=== PATIENT | female | born 1935 | race Caucasian/White ===

== ENCOUNTER 2024-04-06 07:45 | Inpatient (IN) | payer OTHER, SELFPAY ==
[2024-03-15 13:42] VITALS: BMI 28.1
[2024-03-15 14:39] LABS: Hematocrit 39.5 % (37.0-47.0); Hemoglobin 13.1 g/dL (12.0-16.0); Mean Corp Hgb Conc. 33.2 g/dL (33.0-37.0); Mean Corpuscular Hgb 32.6 pg (27.0-31.0); Mean Corpuscular Volume 98.3 fL (81.0-99.0); Mean Platelet Volume 9.3 fL (7.4-10.4); Platelet Count 227 10^3/uL (130-400); Red Blood Cell Count 4.02 10^6/uL (4.20-5.40); Red Cell Dist. Width 13.1 % (11.5-14.5); White Blood Cell Count 7.6 10^3/uL (4.8-10.8)
[2024-03-15 15:09] LABS: ALT (SGPT) 16 U/L (0-35); AST (SGOT) 31 U/L (14-36); Albumin 4.4 g/dl (3.5-5.0); Alkaline Phosphatase 82 U/L (38-126); Blood Urea Nitrogen 17 mg/dl (7-17); Calcium 9.9 mg/dl (8.4-10.2); Carbon Dioxide 31 mmol/L (22-30); Chloride 100 mmol/L (98-107); Estimated Creatinine Clearance 42 ml/min; Glucose 94 mg/dl (70-99); Potassium 4.9 mmol/L (3.5-5.1); Sodium 138 mmol/L (135-145); Total Bilirubin 1.4 mg/dl (0.2-1.3); Total Protein 6.6 g/dl (6.3-8.2); eGFR > 60.00
[2024-03-31 11:44] VITALS: BMI 28.1
[2024-04-06] VITALS (22 sets, daily range): BP systolic 94–146; BP diastolic 48–90; PULSE 81; O2SAT 89
[2024-04-06] MEDS: NORMOSOL-R/PLASMALYTE-A 1000 IV ×2 (08:05→12:16)
[2024-04-06] MEDS: CELEBREX 200 MG PO (08:14)
[2024-04-06] MEDS: TYLENOL 650 MG PO ×3 (08:14→21:44)
--- NOTE | 2024-04-06 10:06 | W.PN.ORTHO ---
Today's Communication / Plan
-
D/c when clinically stable.
Assessment
.
Dressing:
Dressing oozing post-procedure -> dressing changed and ANNE pressure wrap applied.
Assessment:
The patient has felix
R knee OA s/p R TKA w/ Dr Kenney 04/06/24
DVT prophylaxis - resumption of Eliquis, b/l venous foot pumps
Post-op nausea - continue Zofran/Compazine prn
- Add daily Protonix
- Monitor
PVCs - monitor on tele
Unprovoked RLE DVT, 2019, and unprovoked b/l PE 2011, treated w/ Coumadin - resume Eliquis
- Previous hypercoaguable w/u neg
- Frequent and early ambulation as tolerated
- Plasma flow devices HIGHLY encouraged upon d/c
COPD w/ asthmatic component
Chronic PADILLA � multifactorial (weight gain, deconditioning)
- Monitor O2
- Resume inhaler
- IS
CKD stage 3 - minimize nephrotoxins
GERD - add Pepcid HS
Microscopic colitis - no NSAIDs
- Continue Budesonide -> would benefit from Cefadroxil upon d/c d/t chronic steroid use
Hypercholesterolemia
Venous insufficiency
R RC syndrome
Osteopenia
Insomnia
C diff 2018
Plan
.
Surgery / Date: R TKA w/ Dr Kenney 04/06/24
DVT Prophylaxis: Other (Eliquis )
Activity:
Out of bed.
PT/OT
Discharge Plan: Home w/ Outpatient PT
Subjective
.
.:
Patient resting comfortably in bed.
R knee pain currently well tolerated.
Post-op nausea likely 2* anesthesia - medicated w/ Zofran, Compazine.
Vital Signs and Labs
.
Vital Signs and Labs:
Lab Results
03/15/24 13:39
03/15/24 13:38
Temp Pulse Resp BP Pulse Ox
97 F 83 16 115/76 94
04/06/24 07:30 04/06/24 07:30 04/06/24 07:30 04/06/24 07:30 04/06/24 07:30
Physical Exam
-
HEENT: No pallor, cyanosis, or jaundice. Throat clear.
NECK: Supple. No JVD.
RESPIRATORY: Lungs clear to auscultation.
CVS: S1, S2 normal. RRR.�
ABDOMEN: Soft, non-tender. No distension.
EXTREMITIES: Strength equal, no calf pain with palpation/dorsiflexion. Calves soft.
SURVEY SUPERINTENDENT: AOx3. No focal deficits. electrical designer grossly intact
[2024-04-06] MEDS: ZOFRAN 4 MG IV (11:12)
[2024-04-06] MEDS: COMPAZINE 5 MG IV (11:31)
--- NOTE | 2024-04-06 12:12 | SUR.PHASEI ---
Parker lunch relief Lightly dozing, denies c/o awaiting room
--- NOTE | 2024-04-06 12:34 | SUR.PHASEI ---
Dozing vss, sl nausea persists, jennifer darren, Catalina GARCIA in and examined, Dr Kenney in
[2024-04-06] MEDS: TYLENOL PO (13:30)
[2024-04-06] MEDS: NSS (PRESERVATIVE FREE) 10 ML IV (14:44)
[2024-04-06] MEDS: PROTONIX IV 40 MG IV (14:44)
--- NOTE | 2024-04-06 14:54 | PTCARENOTE ---
1345: Patient arrived to 2S. Full head to toe assessment completed. B/L LE neurovascular assessment completed. R knee with sara bandage clean dry and intact. IVF running per order. Patient on RA with SpO2 greater than 92%. Call velasquez within reach and
bed in lowest position. Patients daughter at bedside.
[2024-04-06] MEDS: ANCEF 5 IV (17:00)
[2024-04-06] MEDS: COLACE 100 MG PO (19:49)
[2024-04-06] MEDS: BACTROBAN 2% OINTMENT 1 APPLIC NASAL (19:49)
[2024-04-06] MEDS: ELIQUIS 2.5 MG PO (19:49)
[2024-04-06] MEDS: SENOKOT 17.2 MG PO (19:49)
[2024-04-06] MEDS: PRAVACHOL 40 MG PO (21:48)
[2024-04-06] MEDS: DESYREL 75 MG PO (21:48)
[2024-04-07] MEDS: ROXICODONE 5 MG PO ×2 (01:20→08:16)
[2024-04-07] MEDS: TYLENOL 650 MG PO ×3 (01:20→11:23)
[2024-04-07] MEDS: ANCEF 5 IV (01:21)
[2024-04-07] MEDS: FLUSH (NSS) 2 FLUSH IV (01:21)
[2024-04-07 03:02] VITALS: BP 102/54
[2024-04-07] MEDS: TYLENOL PO (05:03)
--- NOTE | 2024-04-07 05:06 | PTCARENOTE ---
Right knee dressing remained C/D/I throughout shift. Patient needed a lot of nursing encouragement for activity. She did ambulate to bathroom x 1. Teds and foot pumps in place throughout shift.
[2024-04-07 07:25] VITALS: BP 104/56
[2024-04-07] MEDS: SENOKOT 17.2 MG PO (08:12)
[2024-04-07] MEDS: PROTONIX 40 MG PO (08:12)
[2024-04-07] MEDS: ELIQUIS 2.5 MG PO (08:12)
[2024-04-07] MEDS: BACTROBAN 2% OINTMENT 1 APPLIC NASAL (08:13)
[2024-04-07] MEDS: COLACE 100 MG PO (08:14)
[2024-04-07 09:50] VITALS: PULSE 82; O2SAT 95
[2024-04-07 11:10] VITALS: BP 121/69
--- NOTE | 2024-04-07 11:18 | CM ---
met with keshawn and daughter at bedside.patient lives at [facility] in [place],she was amb i and was I with her adl prior to surgery.she has never had a vn or been to ip rehab in past.
PCP: Dr Melo Pharmacy: [facility]
PMH: sbo,diarrhea,pancolitis,gerd,oa,pe,transient cerebral ischemia
Patient adm with OA and is pod#1 R TKA, she is ambulating in room a little,tolerating diet,pain is controlled,resume eliquis.spoke with therapist who rec home pt and vn.spoke with edwin at [facility] and placed a referral to [facility] via
[employer].daughter to transport home.patient signed imm letter.Plan :dc home with vn and home pt through [facility].
--- NOTE | 2024-04-07 11:32 | W.PN.ORTHO ---
Today's Communication / Plan
-
D/c today since clinically stable.
Assessment
.
Distal Motor Intact: Yes
Dressing:
Clean, dry and intact.
Assessment:
The patient has felix
R knee OA s/p R TKA w/ Dr Kenney 04/06/24
DVT prophylaxis - resumption of Eliquis, b/l venous foot pumps
Post-op nausea - improved w/ daily Protonix, Zofran and Compazine prn
- Does have Rx for Zofran prn
PVCs - maintaining NSR w/ 1st deg AV block on tele
Unprovoked RLE DVT, 2018, and unprovoked b/l PE 2011, treated w/ Coumadin - resumed Eliquis
- Previous hypercoaguable w/u neg
- Frequent and early ambulation as tolerated
- Plasma flow devices HIGHLY encouraged upon d/c -> call placed to medical staffing coordinator at [facility] to facilitate this
COPD w/ asthmatic component
Chronic PADILLA � multifactorial (weight gain, deconditioning)
- O2 stable on RA
- Resumed inhaler
- IS
CKD stage 3 - continue to minimize nephrotoxins
GERD - added Protonix
Microscopic colitis - no NSAIDs
- Continue Budesonide -> would benefit from Cefadroxil upon d/c d/t chronic steroid use
Hypercholesterolemia
Venous insufficiency
R RC syndrome
Osteopenia
Insomnia
C diff 2019
Plan
.
Surgery / Date: R TKA w/ Dr Kenney 04/06/24
DVT Prophylaxis: Other (Eliquis )
Activity:
Out of bed.
PT/OT
Discharge Plan: Home w/ VN
Subjective
.
.:
Patient resting comfortably in her chair.
R knee pain overall well controlled w/ current pain med regimen.
Denies any new significant complaints.
Eager for potential d/c today.
Vital Signs and Labs
.
Vital Signs and Labs:
Lab Results
03/15/24 13:39
03/15/24 13:38
Temp Pulse Resp BP Pulse Ox
97.6 F 85 18 104/56 92
04/07/24 07:25 04/07/24 07:25 04/07/24 07:25 04/07/24 08:12 04/07/24 08:09
Non-invasive Hgb result: 11.6
Physical Exam
-
HEENT: No pallor, cyanosis, or jaundice. Throat clear.
NECK: Supple. No JVD.
RESPIRATORY: Lungs clear to auscultation.
CVS: S1, S2 normal. RRR.�
ABDOMEN: Soft, non-tender. No distension.
EXTREMITIES: Expected post-surgical R knee edema. Strength equal. No calf pain with palpation/dorsiflexion. Calves soft.
STOVE MOUNTER: AOx3. No focal deficits. midwife practitioner grossly intact
--- NOTE | 2024-04-07 11:49 | W.DS.TRANS ---
DC Summary - Agriscience Teacher
-
Discharge Instructions:
Sleep Apnea Risk Low
Discharge Diagnosis/Procedures R knee OA s/p R TKA w/ Dr Kenney 04/06/24
Diet Other diet
Additional Diets Diabetic carb controlled x1 week for wound
healing/infection prevention.
Activity As tolerated,With Walker
Driving Restrictions Not until seen by your Dr
Bathing Restrictions OK to Shower
Other Services PT,VN
Wound Care Dressing to be removed 1 week post-surgery.
Sarah Beth to be removed by surgeon's office in 2
weeks.
Instructions:
Stand-Alone Forms: Total Hip/Knee Replacement D/C
Changes to Home Medications: Yes
Discharge Medications:
DC Medications w/original date entered in [employer]
albuterol sulfate 90 mcg/actuation aerosol inhaler 1 puff inhalation R QIDPRN PRN sob 04/29/19
multivitamin with folic acid 400 mcg tablet (Tab-A-Gasper) 1 tab PO DAILY Supplement 04/29/19
trazodone 50 mg tablet 75 mg PO HS Sleep 04/29/19
calcium 600 mg (as carbonate)-vitamin D3 10 mcg (400 unit) tablet (Calcium 600 + D(3)) 1 ea PO DAILY Supplement 05/12/19
cranberry 500 mg capsule 500 mg PO DAILY Supplement 05/12/19
apixaban 2.5 mg tablet (Eliquis) 2.5 mg PO BID Blood Clot Prevention/Tx 01/08/23
budesonide 3 mg capsule,delayed,extended release 1 mg PO DAILY Gastrointestinal Issue 01/08/23
melatonin 5 mg tablet 5 mg PO HSPRN PRN sleep 01/08/23
pravastatin 40 mg tablet 40 mg PO HS High Cholesterol 01/08/23
mupirocin 2 % topical ointment 1 applic topical BID 03/31/24
Saccharomyces boulardii 250 mg capsule (Florastor) 250 mg PO DAILY #7 caps 04/07/24
acetaminophen 500 mg tablet (Tylenol Extra Strength) 1,000 mg (2 x 500 mg) PO Q6H #60 tabs 04/07/24
cefadroxil 500 mg capsule 500 mg PO DAILY #7 caps 04/07/24
docusate sodium 100 mg capsule 100 mg PO BID #30 caps 04/07/24
ondansetron HCl 4 mg tablet 4 mg PO Q6H PRN nausea and vomiting #30 tabs 04/07/24
oxycodone 5 mg tablet 5 - 10 mg (1 - 2 x 5 mg) PO Q6H PRN moderate-severe pain #30 tabs 04/07/24
sennosides 8.6 mg tablet (Senna Laxative) 17.2 mg (2 x 8.6 mg) PO BID #30 tabs 04/07/24
triamterene 37.5 mg-hydrochlorothiazide 25 mg tablet 1 tab PO DAILY #0 tabs 04/07/24
Home Medication Changes
Saccharomyces boulardii 250 mg capsule (Florastor) 250 mg PO DAILY #7 caps 04/07/24
acetaminophen 500 mg tablet (Tylenol Extra Strength) 1,000 mg (2 x 500 mg) PO Q6H #60 tabs 04/07/24
cefadroxil 500 mg capsule 500 mg PO DAILY #7 caps 04/07/24
docusate sodium 100 mg capsule 100 mg PO BID #30 caps 04/07/24
ondansetron HCl 4 mg tablet 4 mg PO Q6H PRN nausea and vomiting #30 tabs 04/07/24
oxycodone 5 mg tablet 5 - 10 mg (1 - 2 x 5 mg) PO Q6H PRN moderate-severe pain #30 tabs 04/07/24
sennosides 8.6 mg tablet (Senna Laxative) 17.2 mg (2 x 8.6 mg) PO BID #30 tabs 04/07/24
Pending Results: No
[2024-04-07 12:29] VITALS: BP 113/66; PULSE 82; O2SAT 94
== END 2024-04-07 12:47 | disposition home or self-care (01) | DRG 470 ==
LOC: 2 SOUTH 07:45
PROVIDERS: ADMITTING PHYSICIAN Orthopaedic Surgery; FAMILY PHYSICIAN Internal Medicine Geriatric Medicine
PROC: 0SRC0J9 Replacement of Right Knee Joint with Synthetic Substitute, Cemented, Open Approach (ICD-10-PCS; 2024-04-06)
DX: M17.11 Unilateral primary osteoarthritis, right knee (principal); J44.9 Chronic obstructive pulmonary disease, unspecified; N18.30 Chronic kidney disease, stage 3 unspecified; I87.2 Venous insufficiency (chronic) (peripheral); E78.00 Pure hypercholesterolemia, unspecified
CPT/HCPCS: 36415; 73560; 80053; 83036; 85027; 87070; 93005; 97110; 97116; 97163; 97167; 97530; 97535; C1713; C1776

== ENCOUNTER 2024-04-20 15:48 | Emergency (ER) | payer OTHER, SELFPAY ==
[2024-04-20 15:50] VITALS: BP 90/56
[2024-04-20 16:24] LABS: % Basophils 0.5 % (0-2); % Eosinophils 1.1 % (0-6); % Immature Granulocytes 0.6 % (0-0.5); % Lymphocytes 17.3 % (20.5-51.1); % Monocytes 7.3 % (1.7-9.3); % Neutrophils 73.2 % (42.2-75.2); Absolute Basophils 0.1 10^3/uL (0-0.2); Absolute Eosinophils 0.1 10^3/uL (0-0.7); Absolute Immature Granulocytes 0.1 10^3/uL (0-0.05); Absolute Lymphocytes 1.7 10^3/uL (1.2-3.4); Absolute Monocytes 0.7 10^3/uL (0.1-0.6); Hematocrit 26.4 % (37.0-47.0); Hemoglobin 8.7 g/dL (12.0-16.0); Mean Corpuscular Hgb 31.5 pg (27.0-31.0); Mean Corpuscular Volume 95.7 fL (81.0-99.0); Mean Platelet Volume 8.3 fL (7.4-10.4); Nucleated Red Blood Cells % 0 %; Platelet Count 342 10^3/uL (130-400); Red Blood Cell Count 2.76 10^6/uL (4.20-5.40); Red Cell Dist. Width 13.3 % (11.5-14.5); White Blood Cell Count 9.6 10^3/uL (4.8-10.8)
[2024-04-20 16:29] LABS: INR 1.33; PT 16.6 Sec (11.4-14.6)
[2024-04-20 16:37] LABS: ALT (SGPT) 32 U/L (0-35); AST (SGOT) 35 U/L (14-36); Albumin 3.5 g/dl (3.5-5.0); Alkaline Phosphatase 101 U/L (38-126); Blood Urea Nitrogen 15 mg/dl (7-17); Calcium 9.3 mg/dl (8.4-10.2); Carbon Dioxide 27 mmol/L (22-30); Chloride 98 mmol/L (98-107); Glucose 112 mg/dl (70-99); Potassium 4.2 mmol/L (3.5-5.1); Sodium 135 mmol/L (135-145); Total Bilirubin 1.9 mg/dl (0.2-1.3); Total Protein 5.6 g/dl (6.3-8.2); eGFR > 60.00
[2024-04-20 16:45] LABS: Troponin I < 0.012 ng/ml
[2024-04-20 18:39] VITALS: BP 112/61
--- NOTE | 2024-04-20 21:09 | ED.GENMED ---
History of Present Illness
General
Chief Complaint: Abnormal Lab Value
Time Seen by Provider: 04/20/24 19:32
History of Present Illness
History of Present Illness:
88-year-old female with history of COPD, prior PE on Eliquis, hypertension, and hyperlipidemia presents to the emergency department for evaluation of an elevated D-dimer. This test was obtained by her primary physician through [facility].
States she had labs drawn this morning, states she has no symptoms 'I was taking a nap when the medics woke me up'. Currently denies chest pain or shortness of breath. She reportedly has had some difficulty with exertional dyspnea while performing
rehab and was even given exertional oxygen which is likely the cause of the D-dimer lab that was obtained. She has been on Eliquis since 1 day postop. Is currently on antibiotics for presumed cellulitis of the right lower extremity. She does note
having a cough and wheezing approximately 1 week ago, however this has resolved
Past History
Past History
ED Past Medical History: COPD, GERD, HTN, Hypercholesterolemia, Psychiatric (A/D), Other (chronic collagenous colitis) and Other (DVT, CKD)
ED Past Surgical History: Cholecystectomy and Gynecological (Hysterectomy)
Social History
Tobacco: Non-smoker
Alcohol: None
Drug: None
Personal:
Living: alone
Employment: Not employed
Family History
Family History: Other (Reviewed and non-contributory)
Review of Systems
Review of Systems
Allergies reviewed?: Yes
All Other Systems: ROS reviewed and negative except as documented in HPI and ROS
Phy Exam
Physical Exam
Physical Exam:
GEN: Well appearing, NAD, WDWN
Eyes: PERRLA, EOMs intact, no scleral icterus
HENT: NCAT, oral mucosa moist, no JVD, no cervical adenopathy.
Lungs: CTAB, no wheezes, rales, rhonchi, normal chest wall excursion
Cardiac: RRR, no M/R/G, no peripheral edema. Radial pulses 2+ bilat
Neuro: AO x 3
MSK: Status post right TKA. Incision is clean dry and intact with no dehiscence or discharge. No erythema. Diffuse joint effusion and edema extending to the lower extremity
Skin: No rashes, petechiae. Normal color, no pallor or jaundice.
Psych: Calm, cooperative, proper hygiene
Course
Orders/Labs/Results
Orders:
Orders
04/20/24 15:55
Electrocardiogram (*1) Urgent
Reason for Study: Chest Pain
EKG- Treatment ONCE
04/20/24 16:05
Complete Blood Count/With Diff Urgent
Comprehensive Metabolic Panel Urgent
Prothrombin Time Urgent
Troponin I Urgent
04/20/24 19:41
CR Chest - 2 Views Urgent
Comment:
Reason For Exam: cough
Venous Doppler Lwr Ext Rt [US Periph Venous LOWER Ext RT] Urgent
Comment:
Reason For Exam: RLE edema, TKA 2 weeks ago, pos dimer
Abnormal Lab Results
04/20/24
16:05
RBC 2.76 L 10^6/uL
(4.20-5.40)
Hgb 8.7 L g/dL
(12.0-16.0)
Hct 26.4 L %
(37.0-47.0)
MCH 31.5 H pg
(27.0-31.0)
Abs Immat Gran (auto) 0.1 H 10^3/uL
(0-0.05)
Absolute Neuts (auto) 7.0 H 10^3/uL
(1.4-6.5)
Absolute Monos (auto) 0.7 H 10^3/uL
(0.1-0.6)
Immature Gran % 0.6 H %
(0-0.5)
Lymphocytes % 17.3 L %
(20.5-51.1)
PT 16.6 H Sec
(11.4-14.6)
Glucose 112 H mg/dl
(70-99)
Total Bilirubin 1.9 H mg/dl
(0.2-1.3)
Total Protein 5.6 L g/dl
(6.3-8.2)
04/20/24 16:05
04/20/24 16:05
Vital Signs
Initial and Last Documented VS:
Initial Vital Signs
Temp Pulse Resp BP Pulse Ox
98.5 F 89 16 90/56 97
04/20/24 15:50 04/20/24 15:50 04/20/24 15:50 04/20/24 15:50 04/20/24 15:50
Last Documented Vital Signs
Temp Pulse Resp BP Pulse Ox
99.2 F 74 18 112/64 99
04/20/24 18:39 04/20/24 21:16 04/20/24 21:16 04/20/24 21:16 04/20/24 21:16
MDM/Problems Addressed
MDM/Problems Addressed:
Patient's elevated D-dimer is most likely on the basis of recent major surgery. Ultrasound of the right lower extremity shows no evidence for DVT, given that she has been anticoagulated since immediately postop and has no chest pain or shortness of
breath at rest I have a low suspicion for pulmonary embolism. I suspect her exertional dyspnea is on the basis of her postoperative anemia, this will need to be trended over the next 1 to 2 weeks by her nursing facility to assure that it improves,
at this time does not meet criteria for blood transfusion. Do not see indication for CT angiogram of the chest at this time as I do not suspect PE, I suspect the elevated D-dimer was artifactual. CXR suggestive of possible lower lobe PNA vs
atelectasis, she has no cough, fever or leukocytosis thus do not see rationale for antibiotics at this time.
Comment
Comment:
EKG independently interpreted by me shows normal sinus rhythm with no ischemic changes at a rate of 89, patient motion artifact limits interpretation particularly inferior and lateral leads.
*Critical Care Note
Total Time (30-74mins, 75-104mins- exclusive of procedures): Not Applicable
ED Attending Note
-
Portions of this chart may have been created with voice recognition software.� Occasional wrong word or��sound alike� substitutions may have occurred due to the inherent limitations of voice recognition software.
Discharge Plan
Departure
Patient Disposition: Home (Routine Discharge)
Date of Disposition: 04/20/24
Time of Disposition: 21:12
Patient with high blood pressure during this ER visit?: No
Discharge Problem:
Postoperative anemia, D-dimer, elevated, Status post total knee replacement, right
Prescriptions:
No Action
trazodone 50 MG tablet
75 mg PO HS
albuterol sulfate 1 PUFF HFA aerosol inhaler
1 puff inhalation R QIDPRN PRN (Reason: sob)
multivitamin with folic acid [Tab-A-Gasper] 1 TABLET tablet
1 tab PO DAILY
cranberry 500 MG capsule
500 mg PO DAILY
calcium carbonate-vitamin D3 [Calcium 600 + D(3)] 1 EACH tablet
1 ea PO DAILY
pravastatin 40 mg Tablet
40 mg PO HS
melatonin 5 mg Tablet
5 mg PO HSPRN PRN (Reason: sleep)
Eliquis 2.5 mg Tablet
2.5 mg PO BID
budesonide 3 MG capsule,delayed,extend.release
1 mg PO DAILY
mupirocin 2 % Ointment
1 applic TOPICAL BID
Patient Comments:
Patient started this medication administration on 04/03/24 in the morning.
docusate sodium 100 mg Capsule
100 mg PO BID Qty: 30 0RF
oxycodone 5 mg Tablet
5 - 10 mg PO Q6H PRN (Reason: moderate-severe pain) Qty: 30 0RF
Rx Instructions:
1 tab for moderate pain, 2 if severe.
Dx total joint.
sennosides [Senna Laxative] 8.6 mg Tablet
17.2 mg PO BID Qty: 30 0RF
ondansetron HCl 4 mg tablet
4 mg PO Q6H PRN (Reason: nausea and vomiting) Qty: 30 0RF
Rx Instructions:
Prescribed pre-op by surgeon's office.
Saccharomyces boulardii [Florastor] 250 mg capsule
250 mg PO DAILY Qty: 7 0RF
Rx Instructions:
Over the counter. Take while on antibiotic.
If unavailable, choose a different probiotic.
acetaminophen [Tylenol Extra Strength] 500 mg Tablet
1,000 mg PO Q6H Qty: 60 0RF
Rx Instructions:
DO NOT exceed >4000 mg daily.
triamterene-hydrochlorothiazid 37.5-25 mg Tablet
1 tab PO DAILY Qty: 0 0RF
Rx Instructions:
HOLD IF systolic blood pressure <130 while on Oxycodone.
cefadroxil 500 mg capsule
500 mg PO DAILY Qty: 7 0RF
Referrals:
Taniya Melo MD [Family Provider] -
Activity Restrictions/Additional Instructions:
The d dimer elevation is likely artifactual due to recent major surgery
Her hemoglobin dropped approximately 5gm since pre-operative; please have a repeat CBC checked in 1 week to assure it is improving. This is the likely cause of her exertional difficulty breathing
Interventions
Interventions:
*Risk Screen - Suicide Last Done: 04/20/24 15:50
*General Assessment Last Done: 04/20/24 19:36
*Neglect/Abuse Screening Last Done: 04/20/24 15:50
ED- Fall Risk Assessment Last Done: 04/20/24 19:36
Discharge Date and Time
Print Language: DIVEHI
[2024-04-20 21:16] VITALS: BP 112/64
[2024-04-20 23:55] VITALS: BP 126/61
== END 2024-04-20 23:55 ==
LOC: EMR 15:48
PROVIDERS: Emergency Medicine; EMERGENCY PHYSICIAN Emergency Medicine; FAMILY PHYSICIAN Internal Medicine Geriatric Medicine
DX: D64.89 Other specified anemias (principal); R79.1 Abnormal coagulation profile; Z96.651 Presence of right artificial knee joint; J44.9 Chronic obstructive pulmonary disease, unspecified; I10 Essential (primary) hypertension; K21.9 Gastro-esophageal reflux disease without esophagitis; Z79.01 Long term (current) use of anticoagulants; Z86.718 Personal history of other venous thrombosis and embolism
CPT/HCPCS: 99285; 71046; 80053; 84484; 85025; 85610; 93005; 93971